=== PATIENT | male | born 1975 | race Caucasian/White ===

== ENCOUNTER 2016-09-29 13:03 | Emergency (ER) | payer OTHER ==
[~2016-09-29] VITALS: Ht 188 cm; Wt 108.6 kg
[2016-09-29 13:13] VITALS: BP 217/109; PULSE 74; RESP 14; O2SAT 100
--- NOTE | 2016-09-29 13:29 | ED.REPORT ---
HPI-General Illness Date of Service Sep 29, 2016 ED Provider: Jonah Schultz MD Patient is an otherwise healthy 40 year old male who presents to the ED for high blood pressure. Patient went to the doctor for the first time in [address] Perez yesterday. At his appointment, his BP was 240/140 so he was started on clonidine 0.1mg TIB x10 days. He was seen at his PCP today as well and his BP was still 212/124 so he was sent here. Patient has been entirely asymptomatic. He denies headache, chest pain, vision change, SOB, or any other symptoms. Nursing Notes Stated Complaint: BP MONITORING Chief Complaint: Dysrhythmia/Cardiac Nursing Notes Reviewed: Yes Allergies: Coded Allergies: No Known Allergies (Unverified , 09/29/16) Scheduled Hydrochlorothiazide (Hydrochlorothiazide) 25 Mg Tablet 25 MG PO DAILY Lisinopril (Lisinopril) 20 Mg Tablet 20 MG PO DAILY General Time Seen by MD: 13:28 Chief Complaint Other (High BP ) Hx Obtained From: Patient Arrived By: Walk-in Recent Healthcare: Recent doctor visit Past Medical History Past Medical History Recent diagnosis of HTN Past Surgical History None reported Smoking History Former Smoker Social History Drug Use: THC Ambulatory Status Independent Review of Systems +high BP Full Review of Systems Respiratory: Denies: Shortness of breath Cardiovascular: Denies: Chest pain Neurologic: Denies: Headache, Vision change Complete sys rev & neg: except as marked. Physical Exam Vital Signs Vital Signs Date Time Temp Pulse Resp B/P Pulse Ox O2 Delivery O2 Flow Rate FiO2 09/29/16 14:41 84 15 195/114 96 Room Air 09/29/16 13:13 37.0 74 14 217/109 100 Room Air Initial VS: Reviewed, Vital signs abnormal Head / Eyes: Atraumatic, Normocephalic Neck: Full range of motion Respiratory: Breath sounds normal, Clear to auscultation, No respiratory distress Cardiovascular: Regular rate & rhythm, Heart sounds normal, Intact distal pulses Skin: Warm, Dry Neurologic: Alert, Oriented, Nonfocal Psychiatric: Mood/affect normal, Behavior normal, Normal thought content General/Constitutional: Awake, Alert, No acute distress Lower Extremity / Pelvis / MS: No edema Re-Eval/Medical Decision Time of Eval: 13:56 Re-Evaluation/Progress Note: Discussed plan for discharge. Patient understands and agrees with plan. All questions addressed at this time. Consultation : Referral / Consult Name: Arya Ott PA-C Consulted With: Primary care physician Call Returned at: 14:05 Clinical Training Specialist: Will see in office, Agrees with eval, Agrees with plan Note: Discussed pt's case. Will see pt in office on Tuesday Counseled Regarding: Diagnosis, Need for follow-up, When/why to return to ED Discharge & Departure Primary Impression: Hypertensive urgency Disposition: Home Discharge Condition All VS Reviewed: Yes Condition: Stable Patient Instructions: How to Take a Blood Pressure (ED), Hypertension (ED) Additional Instructions: Thank you for coming to the emergency department. Check your blood pressure about once a day and record the results in a log book. Bring the log book with you to the clinic. Follow up with your physician Tuesday, call for an appointment. Continue clonidine 3 times a day. Additionally take the following: HCTZ 25 mg daily Lisinopril 20 mg daily. Return to the emergency department for headache, vision changes, chest pain, shortness of breath, or any other concerning symptoms. Referrals: Arya Ott PA-C (PCP) [facility] Attestation Portions of this note were transcribed by Annika Haji. I, Dr. Schultz personally performed the history, physical exam and medical decision-making; I reviewed and confirmed the accuracy of the information in the transcribed note. Signed by: Ros Olson, 09/29/16 copies to: Arya Ott PA-C, Kirk H MD Sep 29, 2016 13:29 ANNIKA HAJI Sep 29, 2016 13:44
[2016-09-29] MEDS ORDERED: HYDR25TA4 PO (14:13)
[2016-09-29] MEDS ORDERED: LISI-567 PO (14:13)
[2016-09-29 14:41] VITALS: BP 195/114; PULSE 84; RESP 15; O2SAT 96
== END 2016-09-29 14:19 | disposition home or self-care (01) ==
LOC: SED 13:03
DX: I16.0 Hypertensive urgency (principal); Z87.891 Personal history of nicotine dependence